=== PATIENT | male | born 1995 | race Caucasian/White ===

== ENCOUNTER 2016-04-13 13:30 | Emergency (ER) | payer SELFPAY ==
[2016-04-13 14:53] VITALS: BP 133/80
--- NOTE | 2016-04-13 15:21 | UC ---
Skin Complaint HPI - HPI Summary HPI Summary: small rashy pimple like sores on penis and pubic area - History of Current Complaint Chief Complaint: UCGU Time Seen by Provider: 04/13/16 14:57 Stated Complaint: SPOTS ON GENITALS Hx Obtained From: Patient Onset/Duration: Sudden Onset, Lasting Minutes, Lasting Days - 3-4, Still Present Timing: Constant Onset Severity: Mild Current Severity: Mild Pain Intensity: 1 Pain Scale Used: 0-10 Numeric Location: Discrete Aggravating: Nothing Alleviating: Nothing Associated Signs & Symptoms: Positive: Negative Related History: Trauma - shaving - Allergy/Home Medications Allergies/Adverse Reactions: Allergies Allergy/AdvReac Type Severity Reaction Status Date / Time Amoxicillin Allergy Unknown Verified 04/13/16 14:53 Reaction Details Azithromycin [From Zithromax] Allergy Unknown Verified 04/13/16 14:53 Reaction Details Home Medications: Home Medications [employer]* 04/13/16 [History] Review of Systems Constitutional: Negative Skin: Rash Eyes: Negative ENT: Negative Respiratory: Negative Cardiovascular: Negative Gastrointestinal: Negative Genitourinary: Negative Motor: Negative Neurovascular: Negative Musculoskeletal: Negative Neurological: Negative Psychological: Negative All Other Systems Reviewed And Are Negative: Yes PMH/Surg Hx/FS Hx/Imm Hx Previously Healthy: Yes - Surgical History Surgical History: Yes Surgery Procedure, Year, and Place: KNEE SURGERY, LEFT INGUINAL HERNIA REPAIR - Family History Known Family History: Positive: None Family History: no known cardio vascular issues in family lineage - Social History Occupation: Employed Full-time Lives: With Family Alcohol Use: Occasionally Substance Use Type: None Smoking Status (MU): Never Smoked Tobacco Physical Exam Triage Information Reviewed: Yes Appearance: Well-Appearing, No Pain Distress, Well-Nourished Vital Signs: Initial Vital Signs Temp 98.3 F 04/13/16 14:49 Pulse 91 04/13/16 14:49 Resp 16 04/13/16 14:49 BP 133/80 04/13/16 14:49 Pulse Ox 100 04/13/16 14:49 Vital Signs Reviewed: Yes Eye Exam: Normal Eyes: Positive: Conjunctiva Clear, Conjunctiva Inflamed ENT Exam: Normal ENT: Positive: Normal ENT inspection, Hearing grossly normal, Pharynx normal, Pharyngeal erythema. Negative: Nasal congestion, Nasal drainage, Trismus, Muffled/hoarse voice Dental Exam: Normal Neck exam: Normal Neck: Positive: Supple, Nontender Respiratory Exam: Normal Respiratory: Positive: Chest non-tender, Lungs clear, Normal breath sounds, No respiratory distress, No accessory muscle use Cardiovascular Exam: Normal Cardiovascular: Positive: RRR, No Murmur, Pulses Normal, Brisk Capillary Refill Musculoskeletal Exam: Normal Musculoskeletal: Positive: Strength Intact, ROM Intact, No Edema Neurological Exam: Normal Neurological: Positive: Alert, Muscle Tone Normal Psychological Exam: Normal Skin: Positive: rashes - folliculitis penis and pubic area Course/Dx - Course Course Of Treatment: bactroban, bactrim, avoid shaving cool wash with soap and water recheck prn - Differential Diagnoses - Skin Complaint Differential Diagnoses: Abscess, Cellulitis, Impetigo, Lymphangitis, Scabies - Diagnoses Provider Diagnoses: Folliculitis Discharge - Discharge Plan Condition: Stable Disposition: HOME Prescriptions: Mupirocin 2% CREAM* [Bactroban 2% CREAM*] 1 applic TOPICAL BID #1 tube Sulfamethox/Trimethoprim DS* [Bactrim DS 800/160 TAB*] 1 tab PO BID #20 tab Patient Education Materials: Folliculitis (ED) Referrals: [facility] [place] [facility] REFERRAL [Outside] - If Needed No Primary Care Phys,NOPCP [Primary Care Provider] -
== END 2016-04-13 15:38 | disposition home or self-care (01) ==
LOC: UCEAST 13:30
DX: L73.9 Follicular disorder, unspecified (principal); Z88.0 Allergy status to penicillin; Z88.1 Allergy status to other antibiotic agents
CPT/HCPCS: 99212; G0463

== ENCOUNTER 2018-01-16 07:35 | Emergency (ER) | payer SELFPAY ==
[2018-01-16 07:49] VITALS: BP 136/87
[2018-01-16] MEDS ORDERED: Tetan/Diph/Pertus SYR(Tdap)* 0.5 ML SYR(BOOSTRIX) use SYR IM ONE (07:53)
--- NOTE | 2018-01-16 08:24 | UC ---
Laceration HPI - HPI Summary HPI Summary: WAS CHANGING A FILTER ON A PIECE OF METAL EQUIPMENT THIS MORNING AT WORK AND SUSTAINED A LACERATION ON HIS RIGHT 5TH FINGER. METAL WAS VERY DIRTY. UNKNOWN DATE OF LAST TETANUS. - History Of Current Complaint Chief Complaint: UCLaceration Stated Complaint: R HAND INJURY Time Seen by Provider: 01/16/18 07:45 Hx Obtained From: Patient Laceration Location: Finger Mechanism Of Injury: Sharp Trauma Onset/Duration: Sudden Onset, Lasting Minutes Severity: Moderate Pain Intensity: 3 Pain Scale Used: 0-10 Numeric Aggravating Factors: Movement Related History: Occupational Injury, Dominant Hand Right - Allergies/Home Medications Allergies/Adverse Reactions: Allergies Allergy/AdvReac Type Severity Reaction Status Date / Time amoxicillin Allergy Intermediate Hives Verified 01/16/18 07:49 azithromycin Allergy Intermediate Hives Verified 01/16/18 07:49 Home Medications: Home Medications Omeprazole CAP* [Prilosec CAP* 20 MG] 20 mg PO DAILY 01/16/18 [History Confirmed 01/16/18] PMH/Surg Hx/FS Hx/Imm Hx Respiratory History: Asthma GI/ History: Gastroesophageal Reflux - Surgical History Surgical History: Yes Surgery Procedure, Year, and Place: KNEE SURGERY, LEFT INGUINAL HERNIA REPAIR. tonsils - Family History Known Family History: Positive: None Negative: Hypertension Family History: no known cardio vascular issues in family lineage - Social History Alcohol Use: Rare Substance Use Type: None Smoking Status (MU): Never Smoked Tobacco Review of Systems Constitutional: Negative Skin: Other - LACERATION Respiratory: Negative Cardiovascular: Negative, Palpitations All Other Systems Reviewed And Are Negative: Yes Physical Exam Triage Information Reviewed: Yes Appearance: Well-Appearing, No Pain Distress, Well-Nourished Vital Signs: Initial Vital Signs Temp 98.1 F 01/16/18 07:45 Pulse 89 01/16/18 07:45 Resp 18 01/16/18 07:45 BP 136/87 01/16/18 07:45 Pulse Ox 99 01/16/18 07:45 Vital Signs Reviewed: Yes Eyes: Positive: Conjunctiva Clear ENT: Positive: Hearing grossly normal Neck: Positive: Supple Respiratory: Positive: No respiratory distress, No accessory muscle use Cardiovascular: Positive: Pulses Normal Abdomen Description: Positive: Soft Musculoskeletal: Positive: ROM Intact, No Edema Neurological: Positive: Alert Psychological: Positive: Age Appropriate Behavior Skin: Positive: Other - 2CM LINEAR LACERATION VOLAR SURFACE RIGHT 5TH FINGER OVERLYING PIP JOINT. APFL ABRASIONS RIGHT 2ND AND 3RD FINGERS. Negative: rashes Laceration Repair - Laceration Repair 1 Description: Linear Laceration Size After Repair: Length (cm) - 2CM, Width (mm) - 0MM, Depth (mm) - 1MM Modified For Repair: No Irrigation With Pressure Irrigation Device: Yes Closure Material: Skin Adhesive, SteriStrips Laceration Course/Dx - Differential Dx - Laceration/Wound Provider Diagnoses: 1. LACERATION REPAIR RIGHT 5TH FINGER. 2. TDAP BOOSTER Discharge - Sign-Out/Discharge Documenting (check all that apply): Patient Departure All imaging exams completed and their final reports reviewed: No Studies - Discharge Plan Condition: Stable Disposition: HOME Prescriptions: Cephalexin CAP* [Keflex 500 CAP*] 500 mg PO BID #10 cap Patient Education Materials: Finger Laceration (ED) Forms: *Work Release Referrals: No Primary Care Phys,NOPCP [Primary Care Provider] - Additional Instructions: KEEP DRESSINGS IN PLACE AND DRY FOR THE FIRST 24 HRS. THEN YOU MAY REMOVE THE DRESSING. SEEK FOLLOW-UP IF YOU DEVELOP SPREADING REDNESS OF THE SKIN, PURULENT DRAINAGE, FEVER, INCREASED PAIN OR ANY OTHER CONCERNING SYMPTOMS. THE STERISTRIPS WILL FALL OFF ON THEIR OWN IN THE NEXT 1-2 WEEKS. DO NOT PUT ANY OINTMENT ON TOP OF THEM. DO NOT SUBMERGE IN WATER FOR PROLONGED PERIOD OF TIME. OKAY FOR BRIEF SHOWER AFTER 24 HOURS AND THEN BE SURE TO ALLOW TO DRY COMPLETELY. TETANUS IMMUNIZATION GIVEN (TDAP): You have been given an immunization against tetanus. Please record this in your records. In general, a booster is needed only once every 10 years. The tetanus shot protects against tetanus or "lockjaw," which is a complication of certain wound infections (the tetanus shot cannot protect against the actual infection). The immunization site may become warm and red due to local reaction. If this occurs, apply warm compresses and take aspirin or ibuprofen to reduce inflammation and discomfort. Return for evaluation if the reaction becomes severe. - Billing Disposition and Condition Condition: STABLE Disposition: Home
== END 2018-01-16 08:25 | disposition home or self-care (01) ==
LOC: UCEAST 07:35
DX: S61.216A Laceration without foreign body of right little finger without damage to nail, initial encounter (principal); W26.9XXA Contact with unspecified sharp object(s), initial encounter; Y93.89 Activity, other specified; Y92.9 Unspecified place or not applicable; Y99.0 Civilian activity done for income or pay; Z23 Encounter for immunization; K21.9 Gastro-esophageal reflux disease without esophagitis; Z88.1 Allergy status to other antibiotic agents; Z88.0 Allergy status to penicillin
CPT/HCPCS: 12001; 90715; 99212; G0463

== ENCOUNTER 2019-06-19 15:58 | Emergency (ER) | payer BC, OTHER ==
--- NOTE | 2019-06-19 17:03 | UC ---
Throat Pain/Nasal Raheem HPI - HPI Summary HPI Summary: 24 yo male presents with sinus symptoms. He tells me that for the last 2 days he has had sinus congestion and post nasal drip. He is concerned for COVID today as his is and has sinus symptoms as well. was tested for COVID 2 days ago as she is - no results yet. Pt wants testing today. Nothing OTC for symptoms. Denies fever, chills, sore throat, cough, SOB, chest pain, abdominal pain, n/v. He does not smoke. - History of Current Complaint Chief Complaint: UCGeneralIllness Stated Complaint: SINUS COMPLAINT Time Seen by Provider: 06/19/19 17:03 Hx Obtained From: Patient Onset/Duration: Sudden Onset Severity: Mild Pain Intensity: 2 Pain Scale Used: 0-10 Numeric - Allergies/Home Medications Allergies/Adverse Reactions: Allergies Allergy/AdvReac Type Severity Reaction Status Date / Time amoxicillin Allergy Intermediate Hives Verified 01/16/18 07:49 azithromycin Allergy Intermediate Hives Verified 01/16/18 07:49 Home Medications: Home Medications Omeprazole CAP (NF) [Prilosec CAP* 20 MG] 20 mg PO DAILY 01/16/18 [History Confirmed 06/19/19] PMH/Surg Hx/FS Hx/Imm Hx GI/ History: Gastroesophageal Reflux - Surgical History Surgical History: Yes Surgery Procedure, Year, and Place: KNEE SURGERY, LEFT INGUINAL HERNIA REPAIR. tonsils - Family History Known Family History: Positive: None Negative: Hypertension Family History: no known cardio vascular issues in family lineage - Social History Lives: With Family Alcohol Use: Rare Substance Use Type: None Smoking Status (MU): Never Smoked Tobacco Review of Systems All Other Systems Reviewed And Are Negative: No Constitutional: Positive: Negative Skin: Positive: Negative Eyes: Positive: Negative ENT: Positive: Nasal Discharge, Sinus Congestion Respiratory: Positive: Negative Cardiovascular: Positive: Negative Gastrointestinal: Positive: Negative Neurological/Mental Status: Positive: Negative Psychological: Positive: Negative Physical Exam - Summary Physical Exam Summary: GENERAL: NAD. WDWN. No pain distress. SKIN: No rashes, sores, lesions, or open wounds. HEENT: Head: AT/NC Eyes: EOM intact. Conjunctiva clear without inflammation or discharge. Ears: Hearing grossly normal. TMs intact, no bulging, erythema, or edema. Nose: Nasal mucosa pink and moist. NTTP maxillary and frontal sinus. Throat: Posterior oropharynx without exudates, erythema, or tonsillar enlargement. Uvula midline. NECK: Supple. Nontender. No lymphadenopathy. CHEST: CTAB. No r/r/w. No accessory muscle use. Breathing comfortably and in no distress. CV: RRR. Pulses intact. Cap refill <2seconds NEURO: Alert. PSYCH: Age appropriate behavior. Triage Information Reviewed: Yes Vital Signs Reviewed: Yes Throat Pain/Nasal Course/Dx - Course Course Of Treatment: No symptoms of COVID today. No known exposure. Recommend self quarantine until 's results return and if she is positive or if pt develops fever, cough, SOB, body aches to return for testing. - Differential Dx/Diagnosis Provider Diagnosis: Rhinosinusitis Discharge ED - Sign-Out/Discharge Documenting (check all that apply): Patient Departure All imaging exams completed and their final reports reviewed: No Studies - Discharge Plan Condition: Stable Disposition: HOME Patient Education Materials: Rhinosinusitis (ED) Forms: *Work Release Referrals: No Primary Care Phys,NOPCP [Primary Care Provider] - Additional Instructions: YOUR SYMPTOMS ARE NOT CONSISTENT WITH COVID TODAY. Your symptoms are likely from a viral infection. Viral infections do not respond to antibiotics and are limited to the treatment of symptoms. Viral infections typically run their course in 7-10 days. Drink plenty of fluids, especially if you are running any fever. Use salt water gargles several times a day. Take over the counter acetaminophen (Tylenol) or ibuprofen (Advil, Motrin) according to directions as needed for pain or fever. You may also use Chloraseptic spray or Cepacol lonzenges according to directions which contain a numbing medication and can provide some temporary relief from a sore throat. Return here or follow up with your primary care provider in 7 days if symptoms persist. - Billing Disposition and Condition Condition: STABLE Disposition: Home
== END 2019-06-19 17:13 | disposition home or self-care (01) ==
LOC: UCEAST 15:58
DX: J32.9 Chronic sinusitis, unspecified (principal); K21.9 Gastro-esophageal reflux disease without esophagitis; Z88.0 Allergy status to penicillin; Z88.1 Allergy status to other antibiotic agents; Z79.899 Other long term (current) drug therapy
CPT/HCPCS: 99211; G0463